=== PATIENT | male | born 1950 | race Caucasian/White ===

== ENCOUNTER 2019-08-25 11:40 | Outpatient (CLI) | payer MEDICARE, SELFPAY ==
[2019-08-26 11:56] LABS: Reference Lab Test Result Negative
== END 2019-08-25 11:41 | disposition home or self-care (01) ==
LOC: ANHLAB 11:45
PROVIDERS: PCP Internal Medicine; Visit Provider Internal Medicine
DX: Z20.828 Contact with and (suspected) exposure to other viral communicable diseases (principal)
CPT/HCPCS: 36415; 86769

== ENCOUNTER 2019-09-01 09:59 | Outpatient (CLI) | payer MEDICARE, SELFPAY ==
--- NOTE | ~2019-09-01 | XR_ITS ---
XR chest 2V DATE: 09/01/2019 10:38 INDICATION: Congestion. Unspecified illness. TECHNIQUE: PA and lateral views COMPARISON: 09/07/2011 PA and lateral chest FINDINGS: There is some ill-defined densities overlying the right infrahilar area and the mid to uppe r lung zones bilaterally, left greater than right; mild infiltrates or pulmonary mass are not exclude d. Consider CT thorax for further evaluation. Normal heart size. Aortic calcification and mild tortuosity. No pleural effusion or pulmonary vascular congestion or pneumothorax. Degenerative spurring of the thoracic spine. IMPRESSION: Bilateral pulmonary infiltrates and/or masses cannot be excluded; consider CT thorax. Reviewed, dictated and finalized at location A. IMPRESSION: Bilateral pulmonary infiltrates and/or masses cannot be excluded; c onsider CT thorax.
--- NOTE | ~2019-09-01 | XR_ITS ---
XR sinus min 3V DATE: 09/01/2019 10:38 INDICATION: Chronic congestion. Chronic sinusitis. TECHNIQUE: oj Marshall, lateral, submental vertical views COMPARISON: None FINDINGS: The paranasal sinuses are normally developed and aerated. The mastoid air cells are normall y developed and aerated. Minimal rightward bowing of the nasal septum. IMPRESSION: Normally developed and aerated paranasal sinuses and mastoid air cells Reviewed, dictated and finalized at location A. IMPRESSION: Normally developed and aerated paranasal sinuses and mastoid air ce lls
[2019-09-01 10:21] LABS: Basophils Percent Auto 0.6 % (0.2-1.2); Eosinophils Percent Auto 0.2 % (0-4.4); Hematocrit 46.4 % (42.0-52.0); Hemoglobin 16.1 g/dL (14.0-18.0); Immature Granulocyte Absolute 0.02 K/mm3 (0.00-0.031); Immature Granulocyte Percent A 0.4 % (0-0.5); Immature Platelet Fraction Pct 4.5 % (0.9-11.2); Lymphocytes Absolute Auto 1.08 K/mm3 (0.9-3.2); Mean Corpuscular HGB Conc 34.7 g/dl (32-36); Mean Corpuscular Hemoglobin 30.9 pg (26-34); Mean Corpuscular Volume 89.1 fl (80-100); Mean Platelet Volume 10.7 fl (7.4-10.4); Monocytes Absolute Auto 0.7 K/mm3 (0.1-0.6); Monocytes Percent Auto 14.4 % (2.6-8.5); Neutrophils Absolute Auto 3.3 K/mm3 (1.3-6.7); Neutrophils Percent Auto 63.4 % (45.5-73.1); Platelet Count Result 111 k/mm3 (150-375); Red Blood Count 5.21 M/mm3 (4.6-6.20); Red Cell Distribution Width 12.2 % (11.5-14.5); White Blood Count 5.1 K/mm3 (4.5-10.0)
[2019-09-01 10:44] LABS: Influenza Control Positive
== END 2019-09-01 10:00 | disposition home or self-care (01) ==
PROVIDERS: Visit Provider Internal Medicine
DX: J32.9 Chronic sinusitis, unspecified (principal); R69 Illness, unspecified; R91.8 Other nonspecific abnormal finding of lung field
CPT/HCPCS: 36415; 70220; 71046; 85025; 85055; 87804

== ENCOUNTER 2019-09-06 10:27 | Outpatient (CLI) | payer MEDICARE, SELFPAY ==
--- NOTE | ~2019-09-06 | XR_ITS ---
XR chest 2V w apical lordotic 09/06/2019 10:51 Indication: Pneumonia follow-up Procedure: 3 view chest including apical lordotic views Comparison: 09/01/2019 Findings: Interval resolution of bilateral infiltrates, likely resolving pneumonia or atelectasis. No focal pneumonia, pleural effusion or pneumothorax. Heart size is normal. No acute osseous abnormalit y. Impression: 1: No acute cardiopulmonary disease. Reviewed, dictated and finalized at location A. Impression: 1: No acute cardiopulmonary disease.
== END 2019-09-06 10:28 | disposition home or self-care (01) ==
LOC: ANHIMG 10:32
PROVIDERS: Visit Provider Internal Medicine
DX: J18.9 Pneumonia, unspecified organism (principal)
CPT/HCPCS: 71047

== ENCOUNTER 2019-11-07 08:31 | Outpatient (CLI) | payer MEDICARE, SELFPAY ==
--- NOTE | ~2019-11-07 | XR_ITS ---
EXAMINATION: XR chest 2V DATE: 11/07/2019 08:47 INDICATION: Upper respiratory tract infection TECHNIQUE: PA and lateral views of the chest are obtained. COMPARISON: 09/06/2019 FINDINGS: The lungs are free of acute opacities. There is no pleural effusion or pneumothorax. The ca rdiomediastinal silhouette is normal. There is moderate thoracic spondylosis. IMPRESSION: 1. No acute cardiopulmonary abnormality. Reviewed, dictated and finalized at location A.
== END 2019-11-07 08:32 | disposition home or self-care (01) ==
LOC: ANHIMG 08:36
PROVIDERS: Visit Provider Internal Medicine
DX: J06.9 Acute upper respiratory infection, unspecified (principal)
CPT/HCPCS: 71046

== ENCOUNTER 2020-02-01 07:57 | Outpatient (CLI) | payer MEDICARE, SELFPAY ==
--- NOTE | ~2020-02-01 | NM_ITS ---
EXAMINATION: NM stress w perf spect multi DATE: 02/01/2020 11:18 INDICATION: Abnormal electrocardiogram. TECHNIQUE: Rest images were obtained following intravenous administration of 9.1 mCi Tc99m tetrofosmi n ([employer] The patient performed an exercise activity. At peak exercise, 27.5 mCi Tc99m tetrofosmin ([employer]) was administered intravenously, and stress images were obtained. Data was reconstructed in to short axis and horizontal and vertical long axis SPECT images. Gated SPECT images were also obtain ed. COMPARISON: None. FINDINGS: There is no definite reversible or fixed perfusion abnormality to suggest ischemia or infar ction. There is no segmental wall motion abnormality. Left ventricular ejection fraction measures > 70%. IMPRESSION: 1. No definite ischemia or infarct. 2. Normal left ventricular ejection fraction measuring >70%. Reviewed, dictated and finalized at location A.
--- NOTE | 2020-02-01 08:05 | ECHO_ITS ---
Patient Info Name: Parmjit Burnett Age: 69 years : 1950 Gender: Male Ht: 66 in Wt: 180 lbs BSA: 1.97 m2 HR: 75 bpm BP: 162 / 98 mmHg Heart Rhythm: Sinus Rhythm Technical Quality: Good Exam Date: 02/01/2020 8:25 AM Exam Location: [facility] Pulmonary Patient Status: Outpatient Admit Date: 02/01/2020 Staff Ordering Physician: Jomar Lance MD Fashion Consultant Sales: Brian Granados RDCS Attending Provider: Jomar Lance MD Referring Physician: Casi CASTRO; Exam Type: CA echo doppler color flow Study Info Indications R94.31 - Abnormal electrocardiogram ECG EKG Complete two-dimensional, color flow and Doppler transthoracic echocardiogram is performed. History/Risk Factors Abnormal EKG, HTN. Summary 1. Complete two-dimensional, color flow and Doppler transthoracic echocardiogram is performed. 2. Left ventricular chamber dimension is normal. 3. Left ventricular systolic function is normal, estimated at 60-65%. 4. The left ventricular diastolic function is grade I diastolic dysfunction. 5. E/e' 10 is mildly elevated. 6. There is mild aortic valve sclerosis. 7. There is mild aortic valve regurgitation. 8. There is mild tricuspid valve regurgitation. 9. No pulmonary hypertension, estimated pulmonary arterial systolic pressure is 33 mmHg. Left Ventricle E/e' 10 is mildly elevated. Left ventricular chamber dimension is normal. Left ventricular systolic function is normal, estimated at 60-65%. The left ventricular diastolic function is grade I diastolic dysfunction. Right Ventricle Right ventricular chamber dimension is normal. Right ventricular systolic function is normal. Left Atria Left atrial chamber dimension is normal. Right Atria Right atrial chamber dimension is normal. Aortic Valve The aortic valve is trileaflet. There is mild aortic valve sclerosis. There is no aortic valve stenosis. There is mild aortic valve regurgitation. Pulmonic Valve There is no pulmonic regurgitation. Mitral Valve There is no mitral valve stenosis. There is no mitral valve regurgitation. Tricuspid Valve There is mild tricuspid valve regurgitation. No pulmonary hypertension, estimated pulmonary arterial systolic pressure is 33 mmHg. Pericardium/Pleural There is no pericardial effusion. Inferior Vena Cava Normal inferior vena cava with >50% collapse upon inspiration consistent with normal right atrial pressure, 5 mmHg. Aorta The aortic root size at the sinus of Valsalva is normal. Left Ventricular Outflow Tract Name Value Normal LVOT 2D LVOT Diameter 2.0 cm LVOT Doppler LVOT Peak Gradient 3 mmHg LVOT Mean Gradient 2 mmHg LVOT VTI 18 cm LVOT VTI/AV VTI Ratio 0.6 LVOT Stroke Volume 57 ml LVOT CO 3.6 l/min LVOT CI 1.8 l/min/m2 Mitral Valve Name Value
--- NOTE | 2020-02-01 08:05 | EST_ITS ---
Patient Info Name: Parmjit Burnett Age: 69 years : 1950 Gender: Male Ht: 66 in Wt: 180 lbs BSA: 1.97 m2 Exam Date: 02/01/2020 10:13 AM Exam Location: [facility] Stress Patient Status: Outpatient Admit Date: 02/01/2020 Staff Ordering Physician: Jomar Lance MD Attending Provider: Jomar Lance MD Exercise Technologist: Roby Castañeda RDCS, RT Exercise Physician: Dax Recio DO Exam Type: CA stress test treadmill w NM Study Info Indications R94.31 - Abnormal electrocardiogram ECG EKG A nuclear stress test was performed. A treadmill exercise stress test was performed. Summary 1. 1. Negative Lyle exercise stress test for ischemic ST changes by ECG criteria. 2. 2. Good functional capacity, achieving 10 METs of workload. 3. 3. Appropriate HR response to exercise. 4. 4. Appropriate HR recovery at 1 minute post exercise. 5. 5. Nuclear scan to follow and will be reported separately. Please correlate with it. 6. 6. Patient informed of the above results. Protocol: Lyle Stress ECG Details Stage: REST Duration (min): 0 min : 52 sec Speed (mph): 0.0 Grade (%): 0 HR (bpm): 56 SBP (mmHg): 143 DBP (mmHg): 85 METS: --- Stage: REST Duration (min): 13 min : 21 sec Speed (mph): 0.0 Grade (%): 0 HR (bpm): 68 SBP (mmHg): 143 DBP (mmHg): 85 METS: --- Stage: STAGE 1 Duration (min): 1 min : 0 sec Speed (mph): 1.7 Grade (%): 10 HR (bpm): 87 SBP (mmHg): 143 DBP (mmHg): 85 METS: --- Stage: STAGE 1 Duration (min): 2 min : 0 sec Speed (mph): 1.7 Grade (%): 10 HR (bpm): 88 SBP (mmHg): 143 DBP (mmHg): 85 METS: --- Stage: STAGE 1 Duration (min): 3 min : 0 sec Speed (mph): 1.7 Grade (%): 10 HR (bpm): 93 SBP (mmHg): 169 DBP (mmHg): 88 METS: --- Stage: STAGE 2 Duration (min): 1 min : 0 sec Speed (mph): 2.5 Grade (%): 12 HR (bpm): 101 SBP (mmHg): 169 DBP (mmHg): 88 METS: --- Stage: STAGE 2 Duration (min): 2 min : 0 sec Speed (mph): 2.5 Grade (%): 12 HR (bpm): 105 SBP (mmHg): 169 DBP (mmHg): 89 METS: --- Stage: STAGE 2 Duration (min): 3 min : 0 sec Speed (mph): 2.5 Grade (%): 12 HR (bpm): 109 SBP (mmHg): 169 DBP (mmHg): 89 METS: --- Stage: STAGE 3 Duration (min): 1 min : 0 sec Speed (mph): 3.4 Grade (%): 14 HR (bpm): 121 SBP (mmHg): 184 DBP (mmHg): 90 METS: --- Stage: STAGE 3 Duration (min): 2 min : 0 sec Speed (mph): 3.4 Grade (%): 14 HR (bpm): 129 SBP (mmHg): 184 DBP (mmHg): 90 METS: --- Stage: STAGE 3 Duration (min): 2 min : 35 sec Speed (mph): 3.4 Grade (%): 14 HR (bpm): 134 SBP (mmHg): 184 DBP (mmHg): 90 METS: --- Stage: RECOVERY Duration (min): 0 min : 24 sec Speed (mph): 0.0 Grade (%): 0 HR (bpm): 125 SBP (mmHg): 161 DBP (mmHg): 109 METS: --
== END 2020-02-01 07:58 | disposition home or self-care (01) ==
PROVIDERS: Visit Provider Internal Medicine
DX: R94.31 Abnormal electrocardiogram [ECG] [EKG] (principal); I35.8 Other nonrheumatic aortic valve disorders; I35.1 Nonrheumatic aortic (valve) insufficiency
CPT/HCPCS: 78452; 93017; 93306; A9502

== ENCOUNTER 2021-10-12 07:47 | Outpatient (CLI) | payer MEDICARE, SELFPAY ==
--- NOTE | ~2021-10-12 | MR_ITS ---
EXAMINATION: MR knee LT wo con DATE: 10/12/2021 08:36 INDICATION: Worsening chronic left knee pain. TECHNIQUE: Magnetic resonance imaging (MRI) of the left knee was performed without intravenous contra st. Sequences included axial PD-weighted FS FSE, coronal PD-weighted FSE and PD-weighted FS FSE, sagi ttal PD-weighted FSE, and sagittal T2-weighted FS FSE. COMPARISON: None. FINDINGS: Medial compartment: Full-thickness diffuse cartilage loss. Vertically oriented tear of the posterior horn, medial meniscu s, contiguous with horizontally oriented tearing of the body. Extensive degenerative meniscal signal change and medial extrusion. Lateral compartment: Moderate diffuse cartilage loss. Apical tear of the posterior horn, lateral meniscus. Patellofemoral compartment: Mild cartilage thinning along the lateral facet with partial thickness signal changes in the patellof emoral cartilage. Ligaments and tendons: The ACL is poorly visualized and is likely chronically torn. MCL, LCL, and PCL are intact. Flexor and extensor tendons are intact. Fluid: Moderate volume joint fluid. Osseous/other: Tricompartmental osteophytosis. Subchondral sclerosis in the medial compartment. IMPRESSION: 1. Tricompartmental osteoarthritis, severe in the medial compartment. 2. Extensive degenerative signal change and degenerative tears present in the medial meniscus. 3. Apical tear, lateral meniscus. 4. Chronic ACL tear. 5. Moderate left knee joint effusion. Reviewed, dictated and finalized at location K. IMPRESSION: 1. Tricompartmental osteoarthritis, severe in the medial compartment. 2. Extensive degenerative signal change and degenerative tears present in the m edial meniscus. 3. Apical tear, lateral meniscus. 4. Chronic ACL tear. 5. Moderate left knee joint effusion.
== END 2021-10-12 07:48 | disposition home or self-care (01) ==
PROVIDERS: Visit Provider Internal Medicine
DX: M23.8X2 Other internal derangements of left knee (principal); M17.12 Unilateral primary osteoarthritis, left knee; M25.462 Effusion, left knee; S83.282A Other tear of lateral meniscus, current injury, left knee, initial encounter; X58.XXXA Exposure to other specified factors, initial encounter
CPT/HCPCS: 73721

== ENCOUNTER 2022-01-01 10:06 | Outpatient (CLI) | payer MEDICARE, SELFPAY ==
--- NOTE | ~2022-01-01 | XR_ITS ---
EXAMINATION: XR ankle RT min 3V DATE: 01/01/2022 10:35 INDICATION: Right ankle pain TECHNIQUE: Anteroposterior, oblique, mortise, and lateral views of the right ankle were obtained. COMPARISON: None. FINDINGS: Bone alignment is normal. No fracture. Heterotopic ossicles near the tip the medial malleolus likely sequela of chronic deltoid ligament sprain. Moderate-sized plantar calcaneal spur. Small dystrophic o ssicle at the distal Achilles tendon. Mild tibiotalar osteoarthritis. No ankle joint effusion. No ero sions. Vascular calcifications along the posterior tibial and anterior tibial arteries. IMPRESSION: 1. Mild osteoarthritis at the right ankle 2. A few small heterotopic ossicle suggesting chronic deltoid ligament sprain. 3. Enthesopathic change at the calcaneal insertions of the distal Achilles tendon and proximal planta r aponeurosis. Reviewed, dictated and finalized at location A. IMPRESSION: 1. Mild osteoarthritis at the right ankle 2. A few small heterotopic ossicle suggesting chronic deltoid ligament sprain. 3. Enthesopathic change at the calcaneal insertions of the distal Achilles tend on and proximal plantar aponeurosis.
[2022-01-01 11:55] LABS: CRP 0.6 mg/dL (<1.0); Uric Acid 4.8 mg/dL (3.5-8.5)
[2022-01-01 12:18] LABS: Erythrocyte Sedimentation Rate 10 mm/hr (0-20)
== END 2022-01-01 10:07 | disposition home or self-care (01) ==
PROVIDERS: PCP Internal Medicine; Visit Provider Internal Medicine
DX: M25.571 Pain in right ankle and joints of right foot (principal); M19.071 Primary osteoarthritis, right ankle and foot
CPT/HCPCS: 36415; 73610; 84550; 85652; 86140

== ENCOUNTER 2022-06-09 09:37 | Outpatient (CLI) | payer MEDICARE, SELFPAY ==
--- NOTE | ~2022-06-09 | XR_ITS ---
Lumbosacral Spine: AP and lateral views Clinical History: Pain COMPARISON: 08/27/2013 Findings: The normal lordotic curve is maintained. The vertebral bodies and posterior elements are i ntact. The intervertebral disc spaces are preserved. Facet joint degenerative change present at L4-L 5 and L5-S1. The sacroiliac joints are normally outlined. Impression: Stable facet joint degenerative changes at the lower lumbar spine. Reviewed, dictated and finalized at location . CE SUPERINTENDENT Impression: Stable facet joint degenerative changes at the lower lumbar spine.
== END 2022-06-09 09:38 | disposition home or self-care (01) ==
LOC: ANHIMG 09:42
PROVIDERS: PCP Internal Medicine; Visit Provider Internal Medicine
DX: M47.816 Spondylosis without myelopathy or radiculopathy, lumbar region (principal)
CPT/HCPCS: 72100

== ENCOUNTER 2022-10-01 14:21 | Outpatient (CLI) | payer MEDICARE, SELFPAY ==
[2022-10-01 14:36] LABS: Basophils Percent Auto 0.8 % (0.2-1.2); Eosinophils Absolute Auto 0.1 K/mm3 (0-0.3); Eosinophils Percent Auto 1.2 % (0-4.4); Hematocrit 50.8 % (42.0-52.0); Hemoglobin 17.4 g/dL (14.0-18.0); Immature Granulocyte Absolute 0.01 K/mm3 (0.00-0.031); Immature Granulocyte Percent A 0.2 % (0-0.5); Immature Platelet Fraction Pct 6.8 % (0.9-11.2); Lymphocytes Absolute Auto 0.91 K/mm3 (0.9-3.2); Lymphocytes Percent Auto 18.6 % (18.3-44.2); Mean Corpuscular HGB Conc 34.3 g/dl (32-36); Mean Corpuscular Hemoglobin 31.2 pg (26-34); Mean Platelet Volume 11.2 fl (7.4-10.4); Monocytes Absolute Auto 0.4 K/mm3 (0.1-0.6); Neutrophils Absolute Auto 3.4 K/mm3 (1.3-6.7); Neutrophils Percent Auto 70.2 % (45.5-73.1); Platelet Count Result 112 k/mm3 (150-375); Red Blood Count 5.58 M/mm3 (4.6-6.20); Red Cell Distribution Width 12.6 % (11.5-14.5); White Blood Count 4.9 K/mm3 (4.5-10.0)
[2022-10-01 16:58] LABS: Alanine Aminotransferase 22 U/L (6-50); Albumin Level 4.9 g/dL (3.5-5.1); Alkaline Phosphatase 71 U/L (38-126); Anion Gap 9 mmol/L (8-16); Aspartate Amino Transferase 32 U/L (17-59); Bilirubin,Total 0.6 mg/dL (0.2-1.3); Blood Urea Nitrogen 18 mg/dL (9-20); Calcium 9.4 mg/dL (8.4-10.2); Carbon Dioxide 26 mmol/L (22-30); Chloride 104 mmol/L (98-107); Estimated Glomerular Filt Rate 50; Glucose 119 mg/dL (65-110); Sodium 139 mmol/L (137-145)
[2022-10-07 07:19] LABS: Erythropoietin (EPO) 23.2
[2022-10-09 14:41] LABS: CALR Exon 9 Mutation Not Detected (Not Detected); CSF3R Exon 14/17 Mutation Not Detected (Not Detected); JAK2 Exon 12 Mutation Not Detected (Not Detected); JAK2 V617F Mutation Not Detected (Not Detected); MPL Exon 10 Mutation Not Detected (Not Detected); Specimen Source Blood
== END 2022-10-01 14:22 | disposition home or self-care (01) ==
LOC: ANHLAB 14:23
PROVIDERS: PCP Internal Medicine; Visit Provider Internal Medicine Hematology & Oncology
DX: D75.1 Secondary polycythemia (principal)
CPT/HCPCS: 36415; 80053; 81219; 81270; 81279; 81339; 81479; 82668; 85025; 85055

== ENCOUNTER 2022-11-26 06:35 | Outpatient (CLI) | payer MEDICARE, SELFPAY ==
--- NOTE | ~2022-11-26 | CT_ITS ---
EXAMINATION: CT abdomen pelvis w con DATE: 11/26/2022 07:46 INDICATION: Left lower quadrant abdominal pain TECHNIQUE: Computed tomography (CT) of the abdomen and pelvis was performed with 100 CC Omnipaque 350 intravenous contrast. Automated exposure control and iterative reconstruction technique were employe d. Exam dose: 555.99 mGy-cm total exam DLP. COMPARISON: None. FINDINGS: There is minimal atelectasis at the lung bases. Heart size is within normal limits. No jerson cardial or pleural effusion. Very small sliding hiatal hernia. There calcified hepatic and splenic granulomas consistent with old granulomatous disease. No hepatic, splenic, pancreatic, adrenal or renal space-occupying mass lesion is noted. The gallbladder is unremarkable. No bile duct or pancreatic duct dilatation. No urinary tract calculus or hydroureteronephrosis. There is mild prostate enlargement. The urinary bladder is unremarkable. Bilateral fat-containing inguinal hernias and small fat-containing umbilical hernia. There is atherosclerotic calcification but normal caliber of the abdominal aorta. No intraperitoneal or retroperitoneal or pelvic mass lesion or adenopathy or ascites. No evidence of appendicitis. No bowel obstruction, bowel wall thickening, pneumatosis or intraperiton eal free air. Slight diverticulosis of the colon; no CT evidence of diverticulitis. Degenerative changes of the thoracic and lumbar spine; no suspicious osteolytic or osteoblastic lesio ns. IMPRESSION: Very small sliding hernia Slight diverticulosis of the colon Mild prostate enlargement Reviewed, dictated and finalized at Location A. Reviewed, dictated and finalized at location B.
[2022-11-26 07:40] LABS: Estimated Glomerular Filt Rate 50
== END 2022-11-26 06:36 | disposition home or self-care (01) ==
PROVIDERS: PCP Internal Medicine; Visit Provider Internal Medicine
DX: R10.32 Left lower quadrant pain (principal); N40.0 Benign prostatic hyperplasia without lower urinary tract symptoms; K42.9 Umbilical hernia without obstruction or gangrene; K40.90 Unilateral inguinal hernia, without obstruction or gangrene, not specified as recurrent; K57.92 Diverticulitis of intestine, part unspecified, without perforation or abscess without bleeding
CPT/HCPCS: 74177; Q9967

== ENCOUNTER 2024-11-10 14:34 | Outpatient (CLI) | payer MEDICARE, SELFPAY ==
--- OUTSIDE RECORDS SUMMARY | 2024-11-10 14:38 | XMS_ITS | Continuity of Care Document ---
Author Organization [facility] Address [address] [place] [address] Phone Care Team Providers Care Screw Eye Assembler Name Role Phone Esdras Mcbride MD Unavailable Unavailable Medications Medication Instructions Dosage Effective Dates (start - stop) Status Comments EXFORGE (unknown strength) Not Available - Active aspirin 81 mg tablet,delayed release - Active Procedures Procedure Date OFFICE/OUTPATIENT VISIT EST OFFICE/OUTPATIENT VISIT NEW Advance Directives Directive Yes / No Effective Date File Name No Information Encounters Encounter Description Practice Location Reason(s) For Visit Diagnoses Date Provider Providers Copied on Encounter OFFICE/OUTPA TIENT VISIT EST [facility], [address] [address], [place], [address], [place] tel:[phone] [facility] Osteoarthritis of right knee [address]. [address] [facility], [place], [place], [id number] . tel: [phone] OFFICE/OUTPA TIENT VISIT NEW [facility], [address] [address], [place], [address], [place] tel:[phone] [facility] Right knee painOsteoarthrit is of right kneeTear of medial meniscus of right knee [address]. [address] [facility], [place], [place], [id number] . tel:[phone] Referring Provider: Jomar Hicks, [address], [place], [address]. tel:[phone] Family History Family Member Type Diagnosis Age At Onset Mother Problem (finding) malignant neop lasm of breast in first degree relative Father Problem (finding) prostate cancer Payers Payer name Insurance type Covered constitution party ID Randolph bhat(s) No Information Social History Type Description Quantity Date Captured Comments Alcohol Use Details Unknown Caffeine Use Details Unknown Tobacco Use Status No Information Smoking Status No Information Sex Male Chief Complaint And Reason For Visit No Information Reason For Referral Reason For Referral No Information Plan Of Treatment Date Type Action Status Referral Ordered: RADEX KNE 3 VIEWS RT ordered History Of Present Illness Encounter Date Complaint History Of Prese nt Illness No Information Functional Status Date Functional Assessmen t No Information Instructions Date Instruction Additional Infor mation Home exercise program. Related t o Osteoarthritis of right knee Discussed surgical options Relat ed to Osteoarthritis of right knee Rest, ice and elevate. Related t o Right knee pain Weight bearing status as directe d. Related to Right knee pain Home exercise program. Related t o Right knee pain Rest, ice and elevate. Related t o Left wrist sprain Cast/splint care given. Related to Left wrist sprain Take medication as directed. Rel ated to Left wrist sprain Use as directed Related to Left wrist sprain Discussed treatment options Rela marta to Right knee pain Assessments Type Assessment Date assessment Osteoarthritis of right knee May Patient Care Teams Name Effective Dates (start - stop) Status Members No Information
--- OUTSIDE RECORDS SUMMARY | 2024-11-10 14:38 | XMS_ITS | Clinical Summary ---
Author Organization [facility] Address [address] [place] [address] Care Team Providers Care Carpenter Mate Name Role Phone Jomar Lance MD Primary Care Provider + Allergies No known active allergies Medications SITagliptin phosphate (Januvia) 100 mg Tablet 04/02/2021 Active empagliflozin (Jardiance) 10 mg tablet Take 10 mg by mouth daily. 04/07/2022 Active levocetirizine (XYZAL) 5 mg tablet TAKE 1 TABLET BY MOUTH NEEDED ONCE DAILY FOR ALLERGY SYMPTOMS 04/16/2022 Active ezetimibe-simva statin (VYTORIN) 10-10 mg tablet Take 1 Tablet by mouth daily at bedtime. Active losartan (COZAAR) 100 mg tablet Take 100 mg by mouth daily. Active Saccharomyces boulardii (FLORASTOR) 250 mg Capsule Take by mouth. Active OMEGA-3 FATTY ACIDS-FISH OIL ORAL Take by mouth. Active aspirin (ISIDRA CHEWABLE) 81 mg Tablet, Chewable Take 81 mg by mouth daily. Active Calcium-Choleca lciferol, D3, (OSCAL) 250 mg-3.125 mcg (125 unit) per tablet Take by mouth daily. Active amLODIPine-ator vastatin 5-10 mg tablet Take 1 Tablet by mouth daily. Active Active Problems No known active problems Family History Relation Name Status Comments Daughter Alive Father Mother Sister Alive Son 1 Alive Son 2 Alive Social History Tobacco Use Types Packs/Day Years Used Date Smoking Tobacco: Never Smokeless Tobacco: Never Tobacco Cessation:Counseling Given: Not Answered Alcohol Use Standard Drinks/Week Comments Yes 0 (1 standard drink = 0.6 oz pur e alcohol) ocassional Sex and Gender Information Value Date Recorded Sex Assigned at Not on file Legal Sex Male 3:21 PM CDT Gender Identity Not on file Sexual Orientation Not on file Last Filed Vital Signs Vital Sign Reading Time Taken Comments Blood Pressure 149/80 10/01/2022 1:24 PM CDT Pulse 97 10/01/2022 1:23 PM CDT Temperature 36.7 C (98 F) 10/01/2022 1:23 PM CDT Respiratory Rate 10 10/01/2022 1:23 PM CDT Oxygen Saturation 97% 10/01/2022 1:23 PM CDT Inhaled Oxygen Concentration - - Weight 82.1 kg (181 lb) 10/01/2022 1:23 PM CDT Height - - Body Mass Index - - Plan of Treatment Health Maintenance Due Date Last Done Comments DTAP/TDAP/TD VACCINES (1 - Tdap) 11/19/1967 COLORECTAL SCREENING 1993 Colorectal Cancer Screening 1993 FIT-DNA Q 3 years 1993 FIT/FOBT Q 1 year 1993 Flex Sig/CT Colonography Q 5 years 1993 PNEUMOCOCCAL VACCINE 50+ YEARS (1 of 1 - PCV) 11/18/18 99 ZOSTER VACCINE (1 of 2) 1998 RSV VACCINE (60+ or ) (1 - 1-dose 75+ series) 11/19/2023 INFLUENZA VACCINE (#1) 2024 Insurance [employer] O MCR Care Teams Carpenter Mate Relationship Specialty Start Date End Date Jomar Lance MD [address] [place] [id number] PCP - General Internal Medicine 10/01/22
--- OUTSIDE RECORDS SUMMARY | 2024-11-10 14:38 | XMS_ITS | Data Portability ---
Author Organization [place] [facility] [employer], Main Office Address [address] [place] [address] Care Team Providers Care Material Processor Name Role Phone RENE NORRIS Primary Care Provider RENE NORRIS Referring Provider [phone] Assessment Encounter Date Assessment Date Assessment LastModified by Organization Details LastModified Time 07/09/2022 07/09/2022 HPI: 71-year-old male came in today for evaluation of his left hip and left knee symptoms. He was seen by Dr. Ansari in October of 2021. He had x-rays done. He was told had arthritis in both hip in the knee. He does not have an injection at that time in the knee. His left knee has been painful for him for years. At certain times of the be increased in the pain other times is very tolerable. He states sometimes is able run up and down stairs without any symptoms other times he feels like he needs to crawl up and down stairs because of pain in the knee. 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 He goes to the gym 3 times a week. One month ago he was walking on the treadmill with a steep incline. He started to experience severe pain in the left groin radiating to the anterior thigh. He was given peroxicamfrom his primary care doctor which she did not feel helped. He was given a Medrol Dosepak 1 month ago and the symptoms in the hip have completely gone away. In the past patient has used ibuprofen, 600 mg, and this seems to help a lot with any of his symptoms. He does not take this on a regular basis. At this point patient's symptoms are overall very mild in both the hip and the. I reviewed patient's x-rays of the left knee which show moderate to moderately severe medial compartment osteoarthritis with mild varus alignment. X-rays of the hip show moderate type 1 osteoarthritis on the AP pelvis view. Physical exam: 71-year-old male very alert pleasant. He is healthy , youthful. he walks well without limp or assistance. He is 5 ft 4 189 lb. He has mild effusion in the left knee. Mild varus alignment. Range of motion is from 0-135 degrees. He has some mild tenderness over the medial joint line to palpation. No lateral joint line tenderness. No pain patellofemoral grind. He has no swelling in either lower extremity. 2+ dorsalis pedis pulse. His left hip flexes to 110 externally rotates to 20 internally rotates to 0. With internal and external rotation he has some mild groin discomfort. Stinchfield maneuver causes him minimal groin discomfort. 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 This is longstanding. This would correlate to the patient having symptoms for years in that knee but again overall his symptoms are very tolerable. He had an episode a month ago where he aggravated the left hip walking on steep incline on the treadmill. At this point his hip is asymptomatic. I had a long discussion with the patient concerning his osteoarthritis both the hip and the knee. We talked about options, cortisone injection in the knee, anti-inflammatori es. And possibly joint replacement in the hip and the knee if his symptoms worsen over time. Talked about modifying activities. We also talked about taking the ibuprofen on a more regular basis rather than when he is hurting as this may help improve his symptoms as well. At this point he is content to try these measures to see if his symptoms continue to be very tolerable. He is going on an [facility] [place] cruise in mid September and we will make an appointment to come in about a week before the trip for a possible cortisone injection left knee depending on his symptoms. If he is doing very well and continues to be asymptomatic he will call and cancel. 30 minutes was spent in treatment of the patient with more than half of this in [id number] conversation. Not available 07/09/2022 12:17:36 09/03/2022 09/03/2022 HPI: Patient returns. he was seen in early July of this year pain left greater than right knee as well as his hip. He is getting ready to go to [place] for vacation. We had talked in July about getting cortisone injection in the knee prior to his trip if he felt that he needed. At this point he is still remaining asymptomatic. He does not feel that the shot is going to be beneficial since he is not really having any symptoms. He does use [id number] ibuprofen this seems to help with his symptoms. He also has a Medrol Dosepak that he is taking with him on his trip given from his primary care doctor. He had taken this in the past when he had a flare up his left hip arthritis and worked dramatically for him. Again at this point patient is asymptomatic. I advise migrated I do not think the injection today is going to necessarily beneficial and he did not either. He declined the injection. Talked about injections in the future. I recommended that he take the ibuprofen on a regular basis up until his trip and then also while is on his trip to hopefully keep from having any symptoms. He will call he has a change in his symptoms otherwise see him back as needed. Not available 09/03/2022 09:28:11 Plan of Treatment Reminders Order Date Submit Date Provider Last Modified By Organization Details Last Modified Time Details Appointments None record ed. Lab None record ed. Referral None record ed. Procedures None record ed. Surgeries None record ed. Imaging None record ed. Medication Orders None record ed. Patient TargetsNo targets recorded. Patient InstructionsNo instructions recorded. Reason for Referral None Reported. Results Created Date Observation Date Name Description Value Unit Range Abnormal Flag Note LastModifiedBy Organization Detail LastModifiedTime 06/13/19 23 06/09/2022 XR, lumba r spine , 2 view No observ ation record ed. [id number] Not Available 07/03/2022 01:48:26 Result Notes None recorded. Problems Name Problem SNOMED Code Status Onset Date Resolution Date Notes Provider Name and Address Organization Details Recorded Time Pain of left hip joint 958817546412418 Active 2022 GUANAKO Maher [place] [facility] [employer] [facility] 3 09:31:20 Pain of left knee joint 847881934885041 Active 2022 GUANAKO Maher [place] [facility] [employer] [facility] 3 08:39:44 Problem Notes None recorded. Medical Equipment None Reported. Allergies No known drug allergies Medications Name Sig Start Date Stop Date Status Note LastModified by Organization Details LastModified Time amlodipine 5 mg tablet TAKE 1 TABLET BY MOUTH ONCE DAILY active Not Available Not Available No t Available OneTouch Ultra Test strips USE 1 STRIP TO CHECK GLUCOSE ONCE DAILY 07/09 completed Not Available Not Available Not Available azelastine 137 mcg (0.1 %) nasal spray USE 1 SPRAY(S) IN EACH NOSTRIL EVERY 12 HOURS active Not Available Not Available No t Available methylpredn isolone 4 mg tablets in a dose pack TAKE BY MOUTH DIRECTED ON INSIDE OF PACKAGE active Not Available Not Available No t Available losartan 100 mg tablet TAKE 1 TABLET BY MOUTH ONCE DAILY WITH AMLODIPIN E active Not Available Not Available No t Available fluticasone propionate 50 mcg/actuati on nasal spray,suspe nsion USE 2 SPRAY(S) IN EACH NOSTRIL ONCE DAILY active Not Available Not Available No t Available naproxen 500 mg tablet TAKE 1 TABLET BY MOUTH THREE TIMES DAILY FOR PAIN WITH FOOD active Not Available Not Available No t Available ezetimibe 10 mg tablet TAKE 1 TABLET BY MOUTH ONCE DAILY active Not Available Not Available No t Available Januvia 100 mg tablet TAKE 1 TABLET BY MOUTH ONCE DAILY active Not Available Not Available No t Available levocetiriz ine 5 mg tablet TAKE 1 TABLET BY MOUTH ONCE DAILY NEEDED FOR ALLERGIES active Not Available Not Available No t Available Jardiance 10 mg tablet TAKE 1 TABLET BY MOUTH ONCE DAILY active Not Available Not Available No t Available OneTouch Delica Plus Lancet 33 gauge USE 1 TO CHECK GLUCOSE ONCE DAILY 07/09 completed Not Available Not Available Not Available Lagevrio 200 mg capsule (EUA) TAKE 4 CAPSULES EVERY 12 HOURS FOR 5 DAYS 07/09 completed Not Available Not Available Not Available Vitals Date Recorded Body height Body mass index (BMI) Body weight Provider Name and Address Organization Details Last Updated DateTime 07/09/2022 162.56 cm 32.4 kg/m2 52272.96 g GUANAKO Maher [facility] [employer] [facility] 07/09/2022 09:45:48 Date Recorded Body height Provider Name an d Address Organization Details Last Updated DateTime 09/03/2022 162.56 cm Charleen Dia [employer] [facility] [employer] [facility] 09/03/2022 08:38:50 Social History None recorded. Functional Status Question Answer Note LastModified by Organizat ion Details LastModified Time What is your level of alcohol consumption? Occasional [email or web address] Information not available 07/09/2022 Mental Status None recorded. Family History Relationship Description Onset Age of this Age Resolved Age Notes LastModified by Organization Details LastModified Time Maternal Aunt Family history of malignant neoplasm [email or web address] Not available 2022 09:29:57 Mother Family history of malignant neoplasm [email or web address] Not available 2022 09:29:57 Paternal Grandmother Hypertensive disorder [email or web address] Not available 2022 09:30:11 Medical History Condition Response ARTHRITIS Y HYPERTENSION Y Past Encounters Encounter ID Performer Location Encounter Start Date Encounter Closed Date Diagnosis/Indication Diagnosis SNOMED-CT Code Diagnosis ICD10 Code Diagnosis Note [id number] Arsen Hart MD [facility] [address] [place] [address] 07/09/2022 09:23:15 07/09/2022 12:24:12 Pain of left hip joint 4494701817 67576 M25.552 [id number] Arsen Hart MD [facility] [address] [place] [address] 09/03/2022 08:36:53 09/03/2022 10:05:37 Pain of left knee joint 4621936349 36667 M25.562 Health Concerns Section Related Observation LastModified by Organization Detai ls LastModified Time None Recorded Concern Status LastModified by Organization Details LastModified Time None Recorded Advance Directives Directive None Recorded Payers Insurance Date Sequence Insurance Name Policy Number Policy Victoria Covered Member ID Victoria Member ID Guarantor Name 09/08/2022 1 [employer] (MEDICARE REPLACEMENT/ ADVANTAGE - PPO) [id number] Parmjit Burnett [id number] Parmjit Burnett 07/14/2022 1 [id number] Parmjit Burnett [id number] Parmjit Burnett
--- OUTSIDE RECORDS SUMMARY | 2024-11-10 14:38 | XMS_ITS | Clinical Summary ---
Author Organization [facility] Address [address] [place] [address] Care Team Providers Care 3D Animator Name Role Phone Jomar Lance MD Primary Care Provider [phone] Source Comments [facility],non-owned Affiliates and Associated Physician Practices is amultiple site organization consisting of ambulatory clinics and hospital sitesin [place], [place], [place] and [place]. This disclosure is being madepursuant to the Care Everywhere program and may not contain all information available regarding this patient. Last updated 18.[facility] [employer] Allergies No known active allergies Medications * Be aware that medications may not be up to date on this document. Alwaysverify current medications with the patient. losartan (COZAAR) 100 MG tablet Take 1 (one) tablet by mouth once daily 07/23/2018 Active amLODIPine (NORVASC) 5 MG tablet Take 1 (one) tablet by mouth once daily 07/23/2018 Active ezetimibe (Zetia) 10 MG tablet Take 1 (one) tablet by mouth once daily Active Calcium Citrate-Vitamin D (CALCIUM + D PO) Take 1 tablet by mouth once daily Active ASPIRIN 81 PO Take 1 tablet by mouth once daily Active JANUVIA 100 MG tablet 04/02/2021 Active Jardiance 10 MG tablet Take 1 (one) tablet by mouth once daily 04/07/2022 Active fluticasone propionate (Flonase) 50 MCG/ACT nasal spray [place] 2 (two) sprays into each nostril as needed 04/16/2022 Active OneTouch Ultra test strip USE 1 STRIP TO CHECK GLUCOSE ONCE DAILY 01/14/2022 Active Lancets (ONETOUCH DELICA PLUS 33G EXTRA FINE LANCET) USE 1 TO CHECK GLUCOSE ONCE DAILY 01/14/2022 Active levocetirizine (Xyzal) 5 MG tablet TAKE 1 TABLET BY MOUTH NEEDED ONCE DAILY FOR ALLERGY SYMPTOMS 04/16/2022 Active fluorouracil (Efudex) 5 % creamIndication s:Actinic keratosis Apply to affected area twice daily for two weeks to the forehead, frontal scalp and temples leading up to follow up appointment. 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 Gender Identity Not on file Sexual Orientation Not on file Plan of Treatment Health Maintenance Due Date Last Done Comments COLOGUARD (AGES 45-75) - COL ON CA SCREENING 1950 COLON MONITORING 1950 COLONOSCOPY - COLON CA SCREENING 1950 CT COLONOGRAPHY - COLON CA SCREENING 1950 Colorectal Cancer Screening 1950 FIT - COLON CA SCREENING 1950 FLEX SIG - COLON CA SCREENING 1950 LIPID TESTING 1950 MEDICARE AWV 12 MONTHS 1950 HEPATITIS C SCREENING 11/14/1966 DTAP/TDAP/TD VACCINES (1 - Tdap) 11/19/1967 PNEUMOCOCCAL VACCINE 50+ (1 of 1 - PCV) 1998 ZOSTER VACCINE (1 of 2) 1998 Respiratory Syncytial Virus (RSV) Vaccine Pt: or over 60 yrs (1 - 1-dose 75+ series) 11/19/2023 COVID-19 VACCINE (1 - 2023-2 5 season) 2024 DEPRESSION SCREENING 05/04/2024 INFLUENZA VACCINE (Season Ended) 2025 HEPATITIS B VACCINE Aged Out No longe r eligible based on patient's age to complete this topic HIB VACCINE Aged Out No longer eligi ble based on patient's age to complete this topic HPV VACCINE Aged Out No longer eligi ble based on patient's age to complete this topic MENINGOCOCCAL (Group B) VACC INE SHARED DECISION-MAKING Aged Out No longer eligibl e based on patient's age to complete this topic MENINGOCOCCAL GROUPS A/C/Y/W VACCINE Aged Out No longer eligible b ased on patient's age to complete this topic Insurance MEDICARE MEDICARE Care Teams 3D Animator Relationship Specialty Start Date End Date Jomar Lance MD [address] [place] [address] PCP - General 09/29/18
--- NOTE | 2024-11-10 15:05 | ECHO_ITS ---
Patient Info Name: Parmjit Burnett Age: 73 years : 1950 Gender: Male Ht: 66 in Wt: 180 lbs BSA: 1.97 m2 HR: 68 bpm BP: 126 / 80 mmHg Technical Quality: Poor Exam Date: 11/10/2024 3:12 PM Patient Status: O Admit Date: 11/10/2024 Exam Type: CA echo dop color flow w con Complete two-dimensional, color flow and Doppler transthoracic echocardiogram is performed with contrast to opacify the left ventricle and to improve the deliniation of the left ventricle endocardial borders. Hoisting Engineer Pile Driving: Jane Hdez Attending Provider: Jomar Lance MD Contrast/Agitated Saline Contrast/Ag. Saline: Definity Amount: 2.00 ml Administered By: Jane Hdez Reason for Poor Study: poor echocardiographic windows Summary 1. Definity contrast administered improved wall motion interpretation. 2. Left ventricular chamber dimension is normal. 3. Left ventricular systolic function is normal, estimated at 60-65. 4. The left ventricular diastolic function is grade I diastolic dysfunction. 5. E/e' 5 is not elevated. 6. Left atrial chamber dimension is mildly enlarged. Left Ventricle Definity contrast administered improved wall motion interpretation. Left ventricular chamber dimension is normal. Left ventricular systolic function is normal, estimated at 60-65. The left ventricular diastolic function is grade I diastolic dysfunction. E/e' 5 is not elevated. Right Ventricle Right ventricular chamber dimension is normal. Right ventricular systolic function is normal and with normal TAPSE 2.1 cm. Left Atria Left atrial chamber dimension is mildly enlarged. Right Atria Right atrial chamber dimension is normal. Aortic Valve The aortic valve is trileaflet. There is no aortic valve stenosis. There is no aortic valve regurgitation. Pulmonic Valve There is no pulmonic regurgitation. Mitral Valve There is no mitral valve stenosis. There is no mitral valve regurgitation. Tricuspid Valve There is no tricuspid valve regurgitation. Pericardium/Pleural There is no pericardial effusion. Inferior Vena Cava Normal inferior vena cava with >50% collapse upon inspiration consistent with normal right atrial pressure, 5 mmHg. Aorta The aortic root size at the sinus of Valsalva is normal. Left Ventricular Outflow Tract Name Value Normal LVOT 2D LVOT Diameter 2.1 cm LVOT Doppler LVOT Peak Velocity 116 cm/s LVOT Peak Gradient 5 mmHg LVOT Mean Gradient 2 mmHg LVOT VTI 31 cm LVOT Stroke Volume 110 ml LVOT CO 7.0 l/min LVOT CI 3.5 l/min/m2 Pulmonic Valve Name Value Normal RVOT Doppler RVOT Peak Velocity 67 cm/s RVOT Peak Gradient 2 mmHg PV Doppler PV Peak Velocity 130 cm/s PV Peak Gradient 7 mmHg Mitral Valve Name Value Normal MV Diastolic Function MV E Peak Velocity 40 cm/s MV A Peak Velocity 91 cm/s MV E/A 0.4 MV Decel Time (PW) 380 ms MV Annular TDI MV E/e' (Septal) 6.1 MV E/e' (Lateral) 5.2 MV E/e' (Average) 5.7 Tricuspid Valve Name Value Normal Estimated PAP/RSVP RA Pressure 5 mmHg <=5 Aortic Valve Name Value Normal AV Doppler AV Peak Velocity 129 cm/s AV Peak Gradient 7 mmHg AV Area (Cont Eq Kevin) 3.2 cm2 AV DI (Kevin) 0.90 AV Regurgitation 2D LVOT Area 3.5 cm2 Ventricles Name Value Normal LV Dimensions 2D/MM IVS Diastolic Thickness (2D) 0.9 cm 0.6-1.0 LVID Diastole (2D) 4.5 cm 4.2-5.8 LVIW Diastolic Thickness (2D) 1.1 cm 0.6-1.0 LVID Systole (2D) 3.1 cm 2.5-4.0 LVOT Diameter 2.1 cm LV Mass (2D Cubed) 151.54 g 88.00-224.00 LV Mass Index (2D Cubed) 77 g/m2 49-115 Relative Wall Thickness (2D) 0.46 <=0.42 LV Fractional Shortening/Ejection Fraction 2D/MM LV Fractional Shortening (2D) 32 % 25-43 LV EF (2D Teichholz) 61 % LV Diastolic Volume (4C MOD) 67 ml LV EF (4C MOD) 58 % LV Diastolic Volume (2C MOD) 54 ml LV EF (2C MOD) 61 % LV Diastolic Volume (BP MOD) 60 ml 62-150 LV Diastolic Volume Index (BP MOD) 30 ml/m2 34-74 LV Systolic Volume (BP MOD) 24 ml 21-61 LV Systolic Volume Index (BP MOD) 12 ml/m2 11-31 LV EF (BP MOD) 59 % 52-72 LV Diastolic Length (4C) 7.0 cm LV Systolic Length (4C) 6.5 cm LV Stroke Volume (4C MOD) 39 ml Atria Name Value Normal LA Dimensions LA Volume (4C A-L) 60 ml LA Volume (BP A-L) 63 ml RA Dimensions RA Area (4C) 16.0 cm2 <=18.0 Report Signatures
[2024-11-10] MEDS: PERFLUTREN LIPID MICROSPHERES 1.5 ML VIAL DILUTED TO 10 ML TOTAL VOLUME IV PUSH (15:45)
--- NOTE | 2024-11-10 16:13 | IVDEFINITY ---
Prior to administration of IV Definity the patient was educated on the risks and benefits of the imaging enhancing agent including potential adverse side effects. The patient verbalized understanding. Allergies were verified. No exclusion criteria were identified and at least one of the following inclusion criteria were met: 1) physician request, 2) patient technically difficult to image (per the [place] Society of Echocardiography guidelines of two or more segments not discernable within the apical view), or 3) questionable left ventricular function. ?
== END 2024-11-10 14:35 | disposition home or self-care (01) ==
PROVIDERS: PCP Internal Medicine; Visit Provider Internal Medicine
DX: R94.31 Abnormal electrocardiogram [ECG] [EKG] (principal); I50.30 Unspecified diastolic (congestive) heart failure
CPT/HCPCS: C8929; Q9957

== ENCOUNTER 2025-04-24 11:57 | Outpatient (CLI) | payer MEDICARE, SELFPAY ==
--- NOTE | ~2025-04-24 | XR_ITS ---
XR chest 2V 04/24/2025 12:07 Indication: Cough Procedure: 2 view chest Comparison: Comparison to multiple prior studies sequentially, with oldest reviewed study dated 09/07/2011. Findings: Small pleural effusions. Bibasilar atelectasis. Heart size normal. Status post median sternotomy for CABG. No edema or pneumothorax. Impression: 1: Small pleural effusions with compressive atelectasis of the lung bases. Reviewed, dictated and finalized at location O. DEVELOPER Impression: 1: Small pleural effusions with compressive atelectasis of the lung bases.
--- OUTSIDE RECORDS SUMMARY | 2025-04-24 13:39 | XMS_ITS | Clinical Summary ---
Author Organization [facility] Address [address] [address] Care Team Providers Care Cashier Checker Name Role Phone Jomar Lance MD Primary [...] Comments DTAP/TDAP/TD VACCINES (1 - Tdap) 11/19/1967 PNEUMOCOCCAL VACCINE 50+ YEARS (1 of 1 - PCV) 11/18/18 99 ZOSTER VACCINE (1 of 2) 1998 RSV VACCINE (60+ or ) (1 - 1-dose 75+ series) 11/19/2023 INFLUENZA VACCINE (#1) 2024 Insurance [employer] PPO MCR Care Teams Cashier Checker Relationship Specialty Start Date End Date Jomar Lance MD [address] [place] [id number] PCP - General Internal Medicine 10/01/22
--- OUTSIDE RECORDS SUMMARY | 2025-04-24 13:39 | XMS_ITS | Clinical Summary ---
Author Organization [facility] Address [address] [place] [address] Care Team Providers Care Steel Die Printer Name Role Phone Jomar Lance MD Primary Care Provider [phone] [facility],non-owned Affiliates and Associated Physician Practices is amultiple site organization consisting of ambulatory clinics and hospital sitesin [place], [place], [place] and [place]. This disclosure is being madepursuant to the Care Everywhere program and may not contain all information available regarding this patient. 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 Gender Identity Not on file Sexual Orientation Not on file Plan of Treatment Health Maintenance Due Date Last Done Comments MEDICARE AWV 12 MONTHS 1950 HEPATITIS C SCREENING 11/14/1966 DTAP/TDAP/TD VACCINES (1 - Tdap) 11/19/1967 PNEUMOCOCCAL VACCINE 50+ (1 of 1 - PCV) 1998 ZOSTER VACCINE (1 of 2) 1998 Respiratory Syncytial Virus (RSV) Vaccine Pt: or over 60 yrs (1 - 1-dose 75+ series) 11/19/2023 DEPRESSION SCREENING 05/04/2024 COVID-19 VACCINE ( - 2024-2 6 season) 2025 INFLUENZA VACCINE (#1) 2025 HEPATITIS B VACCINE Aged Out No [...] age to complete this [place] [address] MEDICARE Care Teams Steel Die Printer Relationship Specialty Start Date End Date Jomar Lance MD [address] [place] [id number] PCP - General 09/29/18
--- OUTSIDE RECORDS SUMMARY | 2025-04-24 13:39 | XMS_ITS | Clinical Summary ---
Author Organization [facility] Address [facility] [place] [address] Care Team Providers Care Field Service Representative Name Role Phone Jomar Norris MD Primary Care Provider [phone] Encounters Date Type Department Care Team Description 03/22/2025 Telephone [facility] [address] [address] Yuridia Joyner, RN Follow Up Call (CT Heart Calcium Score) 03/09/2025 1:15 PM PSYCHIATRIC SPECIALIST - 03/09/2025 11:59 PM PSYCHIATRIC SPECIALIST Hospital Encounter [facility] [address] [facility] [address] [place], [place] [id number] Jomar Norris MD Discharge Disposition: Home or Self Care (Routine Discharge) 03/09/2025 Travel from Last 3 Months Social History Tobacco Use Types Packs/Day Years Used Date Smoking Tobacco: Never Assessed Sex and Gender Information Value Date Recorded Sex Assigned at Male 03/07/2025 1:31 PM PSYCHIATRIC SPECIALIST Legal Sex Male 1:31 PM PSYCHIATRIC SPECIALIST Gender Identity Not on file Sexual Orientation Not on file Plan of Treatment Health Maintenance Due Date Last Done Comments Kidney Health Evaluation 1948 Hemoglobin A1C 1948 Lipid Panel 1948 Diabetes: Retinopathy Eye Exam 1966 Hepatitis C 1966 DTaP, Tdap and Td Vaccines ( 1 - Tdap) 11/19/1967 Pneumococcal Vaccine: 50+ Ye ars (1 of 2 - PCV) 11/19/1967 Zoster Vaccines (1 of 2) 1998 Annual Medicare Wellness Visit 2013 RSV Immunization or 60+ Years (1 - 1-dose 75+ series) 11/19/2023 COVID-19 Vaccine (2024-2 6 season) 2025 Influenza Adult (#1) 2025 Hepatitis A Vaccines Aged Out No long er eligible based on patient's age to complete this topic Meningococcal B Vaccine Aged Out No l onger eligible based on patient's age to complete this topic Meningococcal Vaccine Aged Out No rod radha eligible based on patient's age to complete this topic RSV Immunizations Under 20 Months Aged Out No longer eligible based on patient's age to complete this topic Procedures Procedure Name Priority Date/Time Associated Diagnosis Comments CT HEART SCREEN CALCIUM SCORE PROMO Routine 03/09/2025 1:45 PM PSYCHIATRIC SPECIALIST Abnormal electrocardiogram (ECG) (EKG) Essential (primary) hypertension Type 2 diabetes mellitus without complications ([facility]/HCC [facility]/HCC) Mixed hyperlipidemia from Last 3 Months Results * CT HEART SCREEN CALCIUM SCORE PROMO (03/09/2025 1:45 PM PSYCHIATRIC SPECIALIST) Anatomical Region Laterality Modality Chest Computed Tomogra phy 03/13/2025 7:01 AM PSYCHIATRIC SPECIALIST Addenda Addendum by Heri Jeffers MD on 03/21/2025 3:10 PM PSYCHIATRIC SPECIALIST [address] [address] ADDENDUM: The report below contains several typographical errors. The corrected portion should read: Results: Left main: 0 LAD: 250 Circumflex: 0 Right coronary: 812 Total Score: 1062 =====IMPRESSION:===== Total Score: 1062 Extensive plaque, high risk, high likelihood of significant stenosis (>50%). Ordered By: JOMAR NORRIS Interpreted By: Heri Jeffers MD, 03/21/2025 3:07 PM Impressions 03/13/2025 7:02 AM PSYCHIATRIC SPECIALIST =====IMPRESSION:===== Total Score: 812 Extensive plaque, high risk, high likelihood of significant stenosis (>50%). Ordered By: JOMAR NORRIS Interpreted By: Heri Jeffers MD, 03/13/2025 7:01 AM Narrative 03/13/2025 7:02 AM PSYCHIATRIC SPECIALIST [facility] [address] [place], [place] [address] EXAMINATION: Multislice Helical CT Coronary Calcium Scoring REASON FOR EXAM: Screening for heart disease COMPARISON: None TECHNIQUE: Multislice helical CT images of the proximal coronary arteries with a computer generated calcification score. A dose lowering technique was used for this procedure, which may include, but is not limited to, dose reduction technique, automated exposure control, iterative reconstruction, ALARA (As Low As Reasonably Achievable), or Image Gently techniques. Results: Left main: 0 LAD: 250 Circumflex: 0 Right coronary: 812 Total Score: 0 Comments: There is no mediastinal adenopathy, and there are no pulmonary nodules in the visualized portions of the chest. Calcium score guidelines: Total Score* Calcium Plaque Mayo *Risk *Probability of significant CAD 0 No Plaque Very Low Very unlikely 1-10 Minimal Plaque Low Unlikely 11-100 Mild Plaque Moderate Low likelihood of significant stenosis <50% 101-400 Moderate Plaque Moderately High Moderate likelihood of significant stenosis (>50%) Over 400 Extensive Plaque High High likelihood of significant stenosis (>50%) The amount of coronary artery calcification correlates with the severity of coronary atherosclerosis and the probability of future significant event. Calcification is not site specific for stenosis and does not identify non-calcified atherosclerotic plaque, but rather indicates the extent of atherosclerosis in the coronary arteries overall. The score may be used as an indicator for risk factor modification or additional cardiac testing. Significant change in calcium score over time may be indicative of subsequent disease development or useful as a benchmark to assess preventative programs. Procedure Note Heri Jeffers MD - 03/13/2025 [facility] [address] [place], [place] [address] EXAMINATION: Multislice Helical CT Coronary Calcium Scoring REASON FOR EXAM: Screening for heart disease COMPARISON: None TECHNIQUE: Multislice helical CT images of the proximal coronary arterieswith a computer generated calcification score. A dose lowering techniquewas used for this procedure, which may include, but is not limited to,dose reduction technique, automated exposure control, iterativereconstruction, ALARA (As Low As Reasonably Achievable), or Image Gentlytechniques. Results: Left main: 0 LAD: 250 Circumflex: 0 Right coronary: 812 Total Score: 0 Comments: There is no mediastinal adenopathy, and there are no pulmonarynodules in the visualized portions of the chest. Calcium score guidelines: Total Score* Calcium Plaque Mayo *Risk *Probability ofsignificant CAD 0 No Plaque Very LowVery unlikely 1-10 Minimal Plaque LowUnlikely 11-100 Mild Plaque ModerateLow likelihood of significant stenosis <50% 101-400 Moderate Plaque Moderately HighModerate likelihood of significant stenosis (>50%) Over 400 Extensive Plaque HighHigh likelihood of significant stenosis (>50%) The amount of coronary artery calcification correlates with the severityof coronary atherosclerosis and the probability of future significantevent. Calcification is not site specific for stenosis and does notidentify non-calcified atherosclerotic plaque, but rather indicates theextent of atherosclerosis in the coronary arteries overall. The score may be used as an indicator for risk factor modification oradditional cardiac testing. Significant change in calcium score over timemay be indicative of subsequent disease development or useful as abenchmark to assess preventative programs. =====IMPRESSION:===== Total Score: 812 Extensive plaque, high risk, high likelihood ofsignificant stenosis (>50%). Ordered By: JOMAR NORRIS Interpreted By: Heri Jeffers MD, 03/13/2025 7:01 AM Jomar Norris MD CT Edited Result - Final from Last 3 Months Insurance [employer] MEDICARE Care Teams Field Service Representative Relationship Specialty Start Date End Date Jomar Norris MD [address] [place] [id number] PCP - General INTERNAL MEDICINE 03/07/25
--- OUTSIDE RECORDS SUMMARY | 2025-06-08 18:00 | XMS_ITS | Clinical Summary ---
Author Organization Unknown Care Team Providers Care Percussion Teacher Name Role Phone MYRNA MARTINEZ, RENE Unavailable Unavailable LILLY MOONEY, NINA Unavailable Unavailable ROSI LANGSTONN, ANN Unavailable Unavailable LALO MOONEY, JALEN Unavailable Unavailable Payers Payer Name Policy Type Policy Number Effective Date Expira tion Date DRAKE [id number] Problems Condition Name Condition Details Condition Category Status Onset Date Resolution Date Last Treatment Date Treating Clinician Comments ENCNTR FOR SURGICAL AFTCR FOLLOWING SURGERY ON THE CIRC SYS Active 2024-05 00:00: 00 ATHSCL HEART DISEASE OF [place] CORONARY ARTERY W/O ANG PCTRS Active 2024-05 00:00: 00 HYP HRT AND CHR KDNY DIS W HRT FAIL AND STG 1-4/UNSP CHR KDNY Active 2024-05 00:00: 00 ACUTE SYSTOLIC (CONGESTIVE) HEART FAILURE Active 2024-05 00:00: 00 TYPE 2 DIABETES MELLITUS W DIABETIC CHRONIC KIDNEY DISEASE Active 05-04 00:00: 00 CHRONIC KIDNEY DISEASE, UNSPECIFIED Active 05-04 00:00: 00 VENTRICULAR PREMATURE DEPOLARIZATI ON Active 05-04 00:00: 00 HYPERLIPIDEM IA, UNSPECIFIED Active 05-04 00:00: 00 PRESENCE OF AORTOCORONAR Y BYPASS GRAFT Active 2024-05 00:00: 00 MCC (CURRENT) USE OF OPIATE ANALGESIC Active 05-04 00:00: 00 Allergies, Adverse Reactions, Alerts Allergy Name Allergy Type Status Severity Reaction(s) Onset Date Inactive Date Treating Clinician Comments NO KNOWN ALLERGIES Propensity to adverse reactions Active 2024-05 13:26: 43 Immunizations Ordered Immunization Name Filled Immunization Name Date Status Comments Refusal Reason SINGLE DOSE REGIMEN, COVID-19 VACCINE 2024-05-11 00:00:00 Vital Signs Vital Name Observation Time Observation Value Commen ts Temperature 2025-04-17 07:13:00.000 97.8 [degF] Temperature 2025-04-13 11:05:00.000 97.8 [degF] Temperature 2025-04-12 13:23:00.000 99.1 [degF] Temperature 2025-04-12 09:50:00.000 96 [degF] Temperature 2025-04-11 13:16:00.000 97.5 [degF] BMI (%) 2025-04-11 13:16:00.000 28 kg/m2 Height 2025-04-11 13:16:00.000 66 [in_us] Pulse 2025-04-17 07:13:00.000 90 /min Pulse 2025-04-13 11:05:00.000 76 /min Pulse 2025-04-12 13:23:00.000 76 /min Pulse 2025-04-12 09:50:00.000 78 /min Pulse 2025-04-11 13:16:00.000 72 /min O2 Saturation (%) 2025-04-17 07:13:00.000 97 % O2 Saturation (%) 2025-04-13 11:05:00.000 97 % O2 Saturation (%) 2025-04-12 13:23:00.000 96 % O2 Saturation (%) 2025-04-12 09:50:00.000 95 % O2 Saturation (%) 2025-04-11 13:16:00.000 96 % Respirations 2025-04-17 07:13:00.000 18 /min Respirations 2025-04-13 11:05:00.000 18 /min Respirations 2025-04-12 13:23:00.000 18 /min Respirations 2025-04-12 09:50:00.000 18 /min Respirations 2025-04-11 13:16:00.000 17 /min Weight (lbs) 2025-04-17 07:13:00.000 167 [lb_av] Weight (lbs) 2025-04-13 11:05:00.000 170 [lb_av] Weight (lbs) 2025-04-11 13:16:00.000 178.9 [lb_av] Systolic Blood Pressure 2025-04-17 07:13:00.000 138 mm [Hg] Systolic Blood Pressure 2025-04-13 11:10:00.000 122 mm [Hg] Systolic Blood Pressure 2025-04-12 13:23:00.000 105 mm [Hg] Systolic Blood Pressure 2025-04-12 09:50:00.000 96 mm[ Hg] Systolic Blood Pressure 2025-04-11 13:16:00.000 110 mm [Hg] Diastolic Blood Pressure 2025-04-17 07:13:00.000 83 mm [Hg] Diastolic Blood Pressure 2025-04-13 11:10:00.000 80 mm [Hg] Diastolic Blood Pressure 2025-04-12 13:23:00.000 72 mm [Hg] Diastolic Blood Pressure 2025-04-12 09:50:00.000 58 mm [Hg] Diastolic Blood Pressure 2025-04-11 13:16:00.000 64 mm [Hg] Plan of Treatment Planned Activity Planned Date Details Comments Future Scheduled Test RN TO OBSE RVE, ASSESS, EVALUATE, AND DEVELOP AN INDIVIDUALIZED PLAN OF CARE. AGENCY MAY ACCEPT ORDERS FROM CONSULTING PHYSICIANS DR ANITA DANGELO TO OBSERVE AND ASSESS, DRYWALL BOARDHANGER/ENGINEERING OPERATIONS LEADER TO OBSERVE FOR RISK FOR FALLS AND INSTRUCT IN FALL PREVENTION, HOME SAFETY, MEDICATION MANAGEMENT, INFECTION PREVENTION, AND NUTRITION MANAGEMENT. RN/DRYWALL BOARDHANGER/ENGINEERING OPERATIONS LEADER NURSE MAY PERFORM O2 SATURATION LEVEL ON ADMISSION AND PRN FOR 1 FOR RN TO ASSESS/DRYWALL BOARDHANGER TO OBSERVE PATIENT, WITH NOTIFICATION TO THE PHYSICIAN IF SATURATION IS 90% IN THE ABSENCE OF MORE SPECIFIC PARAMETERS FROM THE PHYSICIAN. AGENCY MAY PERFORM A RESUMPTION OF CARE VISIT FOLLOWING ANY HOSPITAL ADMISSION. RN/DRYWALL BOARDHANGER/ENGINEERING OPERATIONS LEADER TO MONITOR CO-MORBID CONDITIONS LISTED ON THE PLAN OF CARE AND ANY NEW CONDITIONS THAT PRESENT THEMSELVES DURING THIS EPISODE TO IDENTIFY CHANGES AND INTERVENE TO MINIMIZE COMPLICATIONS. [code = RN TO OBSERVE, ASSESS, EVALUATE, AND DEVELOP AN INDIVIDUALIZED PLAN OF CARE. AGENCY MAY ACCEPT ORDERS FROM CONSULTING PHYSICIANS DR ANITA DANGELO TO OBSERVE AND ASSESS, DRYWALL BOARDHANGER/ENGINEERING OPERATIONS LEADER TO OBSERVE FOR RISK FOR FALLS AND INSTRUCT IN FALL PREVENTION, HOME SAFETY, MEDICATION MANAGEMENT, INFECTION PREVENTION, AND NUTRITION MANAGEMENT. RN/DRYWALL BOARDHANGER/ENGINEERING OPERATIONS LEADER NURSE MAY PERFORM O2 SATURATION LEVEL ON ADMISSION AND PRN FOR 1 FOR RN TO ASSESS/DRYWALL BOARDHANGER TO OBSERVE PATIENT, WITH NOTIFICATION TO THE PHYSICIAN IF SATURATION IS 90% IN THE ABSENCE OF MORE SPECIFIC PARAMETERS FROM THE PHYSICIAN. AGENCY MAY PERFORM A RESUMPTION OF CARE VISIT FOLLOWING ANY HOSPITAL ADMISSION. RN/DRYWALL BOARDHANGER/ENGINEERING OPERATIONS LEADER TO MONITOR CO-MORBID CONDITIONS LISTED ON THE PLAN OF CARE AND ANY NEW CONDITIONS THAT PRESENT THEMSELVES DURING THIS EPISODE TO IDENTIFY CHANGES AND INTERVENE TO MINIMIZE COMPLICATIONS.] Future Scheduled Test PHYSICAL T HERAPIST TO EVALUATE FOR GAIT TRAINING AND STREGTHENING [code = PHYSICAL THERAPIST TO EVALUATE FOR GAIT TRAINING AND STREGTHENING] Future Scheduled Test OCCUPATION AL THERAPIST TO EVALUATE FOR FOR ADL AND SAFETY EDUCATION [code = OCCUPATIONAL THERAPIST TO EVALUATE FOR FOR ADL AND SAFETY EDUCATION] Future Scheduled Test FALL REDUC TION MANAGEMENT; RN TO ASSESS AND OBSERVE, DRYWALL BOARDHANGER/ENGINEERING OPERATIONS LEADER TO OBSERVE FALL RISK FACTORS AND EDUCATE PATIENT/CAREGIVER ON STRATEGIES TO MINIMIZE THE RISK OF FALLING. [code = FALL REDUCTION MANAGEMENT; RN TO ASSESS AND OBSERVE, DRYWALL BOARDHANGER/ENGINEERING OPERATIONS LEADER TO OBSERVE FALL RISK FACTORS AND EDUCATE PATIENT/CAREGIVER ON STRATEGIES TO MINIMIZE THE RISK OF FALLING.] Future Scheduled Test GASTROINTE STINAL MANAGEMENT; RN TO ASSESS AND TEACH, ENGINEERING OPERATIONS LEADER/DRYWALL BOARDHANGER TO OBSERVE AND TEACH RELATED TO ALTERED GASTROINTESTINAL STATUS TO MINIMIZE COMPLICATIONS AND REDUCE HOSPITALIZATION. [code = GASTROINTESTINAL MANAGEMENT; RN TO ASSESS AND TEACH, ENGINEERING OPERATIONS LEADER/DRYWALL BOARDHANGER TO OBSERVE AND TEACH RELATED TO ALTERED GASTROINTESTINAL STATUS TO MINIMIZE COMPLICATIONS AND REDUCE HOSPITALIZATION.] Future Scheduled Test PAIN MANAG EMENT; RN TO ASSESS AND TEACH, ENGINEERING OPERATIONS LEADER/DRYWALL BOARDHANGER TO OBSERVE AND TEACH AND PROVIDE EDUCATION ON PAIN MANAGEMENT TECHNIQUES. [code = PAIN MANAGEMENT; RN TO ASSESS AND TEACH, ENGINEERING OPERATIONS LEADER/DRYWALL BOARDHANGER TO OBSERVE AND TEACH AND PROVIDE EDUCATION ON PAIN MANAGEMENT TECHNIQUES.] Future Scheduled Test RN TO ASSE SS/TEACH, DRYWALL BOARDHANGER/ENGINEERING OPERATIONS LEADER TO OBSERVE/TEACH SURGICAL AFTERCARE MANAGEMENT TO AVOID HOSPITALIZATION. [code = RN TO ASSESS/TEACH, DRYWALL BOARDHANGER/ENGINEERING OPERATIONS LEADER TO OBSERVE/TEACH SURGICAL AFTERCARE MANAGEMENT TO AVOID HOSPITALIZATION.] Future Scheduled Test CARDIOVASC ULAR SYSTEM; RN TO ASSESS/TEACH, DRYWALL BOARDHANGER/ENGINEERING OPERATIONS LEADER TO OBSERVE/TEACH RELATED TO ALTERED CARDIOVASCULAR STATUS TO MINIMIZE COMPLICATIONS AND REDUCE HOSPITALIZATION. [code = CARDIOVASCULAR SYSTEM; RN TO ASSESS/TEACH, DRYWALL BOARDHANGER/ENGINEERING OPERATIONS LEADER TO OBSERVE/TEACH RELATED TO ALTERED CARDIOVASCULAR STATUS TO MINIMIZE COMPLICATIONS AND REDUCE HOSPITALIZATION.] Future Scheduled Test CORONARY A RTERY BYPASS GRAFT (CABG); RN TO ASSESS/TEACH, DRYWALL BOARDHANGER/ENGINEERING OPERATIONS LEADER TO OBSERVE/TEACH WARNING SIGNS AND SYMPTOMS TO AVOID HOSPITALIZATION. MONITOR SURGICAL INCISION SITES FOR S/S OF INFECTION. [code = CORONARY ARTERY BYPASS GRAFT (CABG); RN TO ASSESS/TEACH, DRYWALL BOARDHANGER/ENGINEERING OPERATIONS LEADER TO OBSERVE/TEACH WARNING SIGNS AND SYMPTOMS TO AVOID HOSPITALIZATION. MONITOR SURGICAL INCISION SITES FOR S/S OF INFECTION.] Future Scheduled Test HYPERTENSI ON MANAGEMENT; RN TO ASSESS AND TEACH, DRYWALL BOARDHANGER/ENGINEERING OPERATIONS LEADER TO OBSERVE AND TEACH WARNING SIGNS AND SYMPTOMS TO AVOID HOSPITALIZATION. [code = HYPERTENSION MANAGEMENT; RN TO ASSESS AND TEACH, DRYWALL BOARDHANGER/ENGINEERING OPERATIONS LEADER TO OBSERVE AND TEACH WARNING SIGNS AND SYMPTOMS TO AVOID HOSPITALIZATION.] Future Scheduled Test ARRHYTHMIA MANAGEMENT; RN TO ASSESS AND TEACH, DRYWALL BOARDHANGER/ENGINEERING OPERATIONS LEADER TO OBSERVE AND TEACH WARNING SIGNS AND SYMPTOMS TO AVOID HOSPITALIZATION. [code = ARRHYTHMIA MANAGEMENT; RN TO ASSESS AND TEACH, DRYWALL BOARDHANGER/ENGINEERING OPERATIONS LEADER TO OBSERVE AND TEACH WARNING SIGNS AND SYMPTOMS TO AVOID HOSPITALIZATION.] Future Scheduled Test RISK FOR H OSPITALIZATION; RN TO ASSESS/TEACH, ENGINEERING OPERATIONS LEADER/DRYWALL BOARDHANGER TO OBSERVE/TEACH PATIENT/CAREGIVER ON RISK FOR HOSPITALIZATION/EMERGENCY ROOM VISITS, TEACH SIGNS AND SYMPTOMS THAT PUT PATIENT AT RISK, WHEN TO NOTIFY NURSE/PHYSICIAN OF COMPLICATIONS/DECLINE, AND WHEN TO CALL 911. [code = RISK FOR HOSPITALIZATION; RN TO ASSESS/TEACH, ENGINEERING OPERATIONS LEADER/DRYWALL BOARDHANGER TO OBSERVE/TEACH PATIENT/CAREGIVER ON RISK FOR HOSPITALIZATION/EMERGENCY ROOM VISITS, TEACH SIGNS AND SYMPTOMS THAT PUT PATIENT AT RISK, WHEN TO NOTIFY NURSE/PHYSICIAN OF COMPLICATIONS/DECLINE, AND WHEN TO CALL 911.] Future Scheduled Test MEDICATION MANAGEMENT; RN/DRYWALL BOARDHANGER/ENGINEERING OPERATIONS LEADER TO REVIEW MEDICATIONS FOR INTERACTIONS, EFFECTIVENESS OF DRUG THERAPY, AND SIGNS/SYMPTOMS OF ADVERSE REACTIONS. MAY INSTRUCT AND REINFORCE MEDICATION TEACHING RELATED TO THE USE OF MEDICATIONS, DOSAGE, FREQUENCY, PURPOSE, SIDE EFFECTS, AND TO REPORT COMPLICATIONS. [code = MEDICATION MANAGEMENT; RN/DRYWALL BOARDHANGER/ENGINEERING OPERATIONS LEADER TO REVIEW MEDICATIONS FOR INTERACTIONS, EFFECTIVENESS OF DRUG THERAPY, AND SIGNS/SYMPTOMS OF ADVERSE REACTIONS. MAY INSTRUCT AND REINFORCE MEDICATION TEACHING RELATED TO THE USE OF MEDICATIONS, DOSAGE, FREQUENCY, PURPOSE, SIDE EFFECTS, AND TO REPORT COMPLICATIONS.] Future Scheduled Test DIABETES M ONITORING RN/ENGINEERING OPERATIONS LEADER/DRYWALL BOARDHANGER TO MONITOR BLOOD SUGAR LOG FOR BLOOD SUGAR READINGS THAT ARE BEING CHECKED BY PATIENT 2 TIMES A DAY. PATIENT THERAPEUTIC BLOOD SUGAR PARAMETERS ARE 100-250 REPORT BLOOD SUGARS OUT OF RANGE TO PHYSICIAN. NURSE MAY PERFORM FINGER STICK BLOOD GLUCOSE NEEDED FOR SIGNS AND SYMPTOMS OF HYPO AND HYPERGLYCEMIA. RN/ENGINEERING OPERATIONS LEADER/DRYWALL BOARDHANGER TO MONITOR ADHERENCE OF PATIENT PERFORMING DIABETIC FOOT CARE AND MAY PERFORM DIABETIC FOOT CARE PRN. RN/ENGINEERING OPERATIONS LEADER/DRYWALL BOARDHANGER TO MONITOR FOR ADHERENCE TO DIABETIC SELF-CARE AND MANAGEMENT INCLUDING MEDICATIONS. [code = DIABETES MONITORING RN/ENGINEERING OPERATIONS LEADER/DRYWALL BOARDHANGER TO MONITOR BLOOD SUGAR LOG FOR BLOOD SUGAR READINGS THAT ARE BEING CHECKED BY PATIENT 2 TIMES A DAY. PATIENT THERAPEUTIC BLOOD SUGAR PARAMETERS ARE 100-250 REPORT BLOOD SUGARS OUT OF RANGE TO PHYSICIAN. NURSE MAY PERFORM FINGER STICK BLOOD GLUCOSE NEEDED FOR SIGNS AND SYMPTOMS OF HYPO AND HYPERGLYCEMIA. RN/ENGINEERING OPERATIONS LEADER/DRYWALL BOARDHANGER TO MONITOR ADHERENCE OF PATIENT PERFORMING DIABETIC FOOT CARE AND MAY PERFORM DIABETIC FOOT CARE PRN. RN/ENGINEERING OPERATIONS LEADER/DRYWALL BOARDHANGER TO MONITOR FOR ADHERENCE TO DIABETIC SELF-CARE AND MANAGEMENT INCLUDING MEDICATIONS.] Future Scheduled Test PRN VISITS ; NUMBER OF RN/DRYWALL BOARDHANGER/ENGINEERING OPERATIONS LEADER VISITS: 1 RN/DRYWALL BOARDHANGER/ENGINEERING OPERATIONS LEADER TO PERFORM: ASSESSMENT FOR THE FOLLOWING REASONS: SKIN INTEGRITY OF SURGICAL WOUNDS AND CARDIAC COMPLICATIONS [code = PRN VISITS; NUMBER OF RN/DRYWALL BOARDHANGER/ENGINEERING OPERATIONS LEADER VISITS: 1 RN/DRYWALL BOARDHANGER/ENGINEERING OPERATIONS LEADER TO PERFORM: ASSESSMENT FOR THE FOLLOWING REASONS: SKIN INTEGRITY OF SURGICAL WOUNDS AND CARDIAC COMPLICATIONS] Future Scheduled Test OCCUPATION AL THERAPY EVALUATION PERFORMED. NO ADDITIONAL VISITS REQUIRED. PROVIDED SKILLED INTERVENTION INCLUDING TASK/ PERFORMANCE ANALYSIS, SIMULATION, PATIENT REPORT, CLINICAL JUDGEMENT TO DETERMINE CLOF IN HOME ENVIRONMENT. [code = OCCUPATIONAL THERAPY EVALUATION PERFORMED. NO ADDITIONAL VISITS REQUIRED. PROVIDED SKILLED INTERVENTION INCLUDING TASK/ PERFORMANCE ANALYSIS, SIMULATION, PATIENT REPORT, CLINICAL JUDGEMENT TO DETERMINE CLOF IN HOME ENVIRONMENT.] Future Scheduled Test PHYSICAL T HERAPY EVALUATION PERFORMED. NO ADDITIONAL VISITS REQUIRED. PROVIDED SKILLED INTERVENTION INCLUDING ASSESSMENT AND VITAL SIGNS, STRENGTH, BALANCE, AMBULATION, AND TRANSFERS. PATIENT INSTRUCTED IN USE OF INCENTIVE SPIROMETER ... [code = PHYSICAL THERAPY EVALUATION PERFORMED. NO ADDITIONAL VISITS REQUIRED. PROVIDED SKILLED INTERVENTION INCLUDING ASSESSMENT AND VITAL SIGNS, STRENGTH, BALANCE, AMBULATION, AND TRANSFERS. PATIENT INSTRUCTED IN USE OF INCENTIVE SPIROMETER ...] Goal Patient Goal - G ET BACK TO NORMAL ACTIVITY Goal Provider Goal - A PLAN OF CARE WILL BE ESTABLISHED THAT MEETS THE PATIENT S NEEDS. PATIENT WILL DEMONSTRATE OXYGEN SATURATION WITHIN NORMAL LIMITS OR PATIENT S OPTIMAL LEVEL ESTABLISHED BY THE PHYSICIAN THROUGHOUT CARE. CHANGES TO CO-MORBID CONDITIONS AND ANY NEW CONDITIONS WILL BE IDENTIFIED AND REPORTED TO THE PHYSICIAN. Goal Provider Goal - Goal Provider Goal - Goal Provider Goal - PATIENT/CAREGIVER WILL VERBALIZE/DEMONSTRATE UNDERSTANDING OF FALL RISK FACTORS AND IMPLEMENT STRATEGIES TO MINIMIZE FALL RISK. PATIENT/CAREGIVER WILL VERBALIZE/DEMONSTRATE AN ABILITY TO ADHERE TO FALL REDUCTION SELF-MANAGEMENT AND LIFE-STYLE CHANGES BY 06/09/24 Goal Provider Goal - PATIENT / CAREGIVER WILL VERBALIZE/DEMONSTRATE UNDERSTANDING OF MEASURES TO MANAGE ALTERED GASTROINTESTINAL STATUS BY END OF EPISODE. Goal Provider Goal - PATIENT / CAREGIVER WILL VERBALIZE / DEMONSTRATE UNDERSTANDING OF PAIN CONTROL MEASURES BY 06/09/24 Goal Provider Goal - PATIENT/CAREGIVER WILL VERBALIZE/DEMONSTRATE POSTOPERATIVE CARE TO MINIMIZE COMPLICATION AND AVOID HOSPITALIZATIONS BY THE END OF THE EPISODE. Goal Provider Goal - PATIENT / CAREGIVER WILL VERBALIZE/DEMONSTRATE UNDERSTANDING OF MEASURES TO MANAGE ALTERED CARDIOVASCULAR STATUS BY 06/09/24 Goal Provider Goal - PATIENT / CAREGIVER WILL VERBALIZE/DEMONSTRATE AN ABILITY TO ADHERE TO SELF-MANAGEMENT OF CABG TO MINIMIZE COMPLICATIONS AND AVOID HOSPITALIZATION BY END OF EPISODE. Goal Provider Goal - PATIENT / CAREGIVER WILL VERBALIZE/DEMONSTRATE AN ABILITY TO ADHERE TO SELF-MANAGEMENT OF HTN TO MINIMIZE COMPLICATIONS AND AVOID HOSPITALIZATION BY END OF EPISODE. Goal Provider Goal - PATIENT / CAREGIVER WILL VERBALIZE/DEMONSTRATE AN ABILITY TO ADHERE TO SELF-MANAGEMENT OF HEART ARRHYTHMIA TO MINIMIZE COMPLICATIONS AND AVOID HOSPITALIZATION BY END OF EPISODE. Goal Provider Goal - PATIENT/CAREGIVER WILL VERBALIZE UNDERSTANDING OF SIGNS AND SYMPTOMS THAT PUT THE PATIENT AT RISK FOR HOSPITALIZATION /EMERGENCY ROOM VISITS, WHEN TO NOTIFY NURSE/PHYSICIAN OF COMPLICATIONS/DECLINE AND WHEN TO CALL 911. Goal Provider Goal - PATIENT/CAREGIVER TO VERBALIZE, AND CONSISTENTLY DEMONSTRATE EFFECTIVE, SAFE MANAGEMENT OF MEDICATION INCLUDING KNOWLEDGE OF EFFECTIVENESS, POTENTIAL SIDE EFFECTS AND DRUG REACTIONS AND WHEN TO CONTACT THE APPROPRIATE CARE PROVIDER. PATIENT/CAREGIVER WILL BE ABLE TO VERBALIZE UNDERSTANDING OF MEDICATION REGIMEN AND ACCURATELY TAKE MEDICATIONS PRESCRIBED WITHOUT ADVERSE EFFECTS BY 06/09/24 Goal Provider Goal - BLOOD SUGARS WILL REMAIN WITHIN ESTABLISHED RANGES AND DIABETES CONTROLLED THROUGHOUT EPISODE. Goal Provider Goal - Goal Provider Goal - PATIENT / CAREGIVER WITHIN 1 VISIT WILL BE ABLE TO VERBALIZE / DEMONSTRATE UNDERSTANDING OF SAFETY PRECAUTIONS Goal Provider Goal - PATIENT / CAREGIVER WITHIN 1 VISIT WILL BE ABLE TO VERBALIZE / DEMONSTRATE UNDERSTANDING OF SAFE INDEPENDENT AMBULATION IN THE HOME ... Encounters Start Date/Time End Date/Time Encounter Type Admission Type Attending [facility] Care Department Encounter ID Discharge Date Discharge Status Discharge Condition Discharge Reason Percent Goals Met 2025-04-11 00:00:00 2025-06-09 00:00:00 Outpatient NEW ADMISSION [facility] [id number] 18.75
--- OUTSIDE RECORDS SUMMARY | 2025-06-08 18:00 | XMS_ITS | Clinical Summary ---
Author Organization Unknown Care Team Providers Care Subsea Engineer Name Role Phone MYRNA MARTINEZ, RENE Unavailable Unavailable LILLY MOONEY, NINA Unavailable Unavailable ROSI LANGSTONN, ANN Unavailable Unavailable LALO MOONEY, JALEN Unavailable Unavailable Payers Payer Name Policy Type Policy Number Effective Date Expira tion Date DRAKE [id number] Problems Condition Name Condition Details Condition Category Status Onset Date Resolution Date Last Treatment Date Treating Clinician Comments ENCNTR FOR SURGICAL AFTCR FOLLOWING SURGERY ON THE CIRC SYS Active 2024-05 00:00: 00 ATHSCL HEART DISEASE OF [place] CORONARY ARTERY W/O ANG PCTRS Active 2024-05 [...] Y BYPASS GRAFT Active 2024-05 00:00: 00 LONGTERM (CURRENT) USE OF OPIATE ANALGESIC Active 05-04 [...] DR ANITA DANGELO TO OBSERVE AND ASSESS, SALES CLERK FOOD/PRODUCTION COST ESTIMATOR TO OBSERVE FOR RISK FOR FALLS AND INSTRUCT IN FALL PREVENTION, HOME SAFETY, MEDICATION MANAGEMENT, INFECTION PREVENTION, AND NUTRITION MANAGEMENT. RN/SALES CLERK FOOD/PRODUCTION COST ESTIMATOR NURSE MAY PERFORM O2 SATURATION LEVEL ON ADMISSION AND PRN FOR 1 FOR RN TO ASSESS/SALES CLERK FOOD TO OBSERVE PATIENT, WITH NOTIFICATION TO THE PHYSICIAN IF SATURATION IS 90% IN THE ABSENCE OF MORE SPECIFIC PARAMETERS FROM THE PHYSICIAN. AGENCY MAY PERFORM A RESUMPTION OF CARE VISIT FOLLOWING ANY HOSPITAL ADMISSION. RN/SALES CLERK FOOD/PRODUCTION COST ESTIMATOR TO MONITOR CO-MORBID CONDITIONS LISTED ON THE PLAN OF CARE AND ANY NEW CONDITIONS THAT PRESENT THEMSELVES DURING THIS EPISODE TO IDENTIFY CHANGES AND INTERVENE TO MINIMIZE COMPLICATIONS. [code = RN TO OBSERVE, ASSESS, EVALUATE, AND DEVELOP AN INDIVIDUALIZED PLAN OF CARE. AGENCY MAY ACCEPT ORDERS FROM CONSULTING PHYSICIANS DR ANITA DANGELO TO OBSERVE AND ASSESS, SALES CLERK FOOD/PRODUCTION COST ESTIMATOR TO OBSERVE FOR RISK FOR FALLS AND INSTRUCT IN FALL PREVENTION, HOME SAFETY, MEDICATION MANAGEMENT, INFECTION PREVENTION, AND NUTRITION MANAGEMENT. RN/SALES CLERK FOOD/PRODUCTION COST ESTIMATOR NURSE MAY PERFORM O2 SATURATION LEVEL ON ADMISSION AND PRN FOR 1 FOR RN TO ASSESS/SALES CLERK FOOD TO OBSERVE PATIENT, WITH NOTIFICATION TO THE PHYSICIAN IF SATURATION IS 90% IN THE ABSENCE OF MORE SPECIFIC PARAMETERS FROM THE PHYSICIAN. AGENCY MAY PERFORM A RESUMPTION OF CARE VISIT FOLLOWING ANY HOSPITAL ADMISSION. RN/SALES CLERK FOOD/PRODUCTION COST ESTIMATOR TO MONITOR CO-MORBID CONDITIONS LISTED ON THE [...] TION MANAGEMENT; RN TO ASSESS AND OBSERVE, SALES CLERK FOOD/PRODUCTION COST ESTIMATOR TO OBSERVE FALL RISK FACTORS AND EDUCATE PATIENT/CAREGIVER ON STRATEGIES TO MINIMIZE THE RISK OF FALLING. [code = FALL REDUCTION MANAGEMENT; RN TO ASSESS AND OBSERVE, SALES CLERK FOOD/PRODUCTION COST ESTIMATOR TO OBSERVE FALL RISK FACTORS AND EDUCATE PATIENT/CAREGIVER ON STRATEGIES TO MINIMIZE THE RISK OF FALLING.] Future Scheduled Test GASTROINTE STINAL MANAGEMENT; RN TO ASSESS AND TEACH, PRODUCTION COST ESTIMATOR/SALES CLERK FOOD TO OBSERVE AND TEACH RELATED TO ALTERED GASTROINTESTINAL STATUS TO MINIMIZE COMPLICATIONS AND REDUCE HOSPITALIZATION. [code = GASTROINTESTINAL MANAGEMENT; RN TO ASSESS AND TEACH, PRODUCTION COST ESTIMATOR/SALES CLERK FOOD TO OBSERVE AND TEACH RELATED TO ALTERED GASTROINTESTINAL STATUS TO MINIMIZE COMPLICATIONS AND REDUCE HOSPITALIZATION.] Future Scheduled Test PAIN MANAG EMENT; RN TO ASSESS AND TEACH, PRODUCTION COST ESTIMATOR/SALES CLERK FOOD TO OBSERVE AND TEACH AND PROVIDE EDUCATION ON PAIN MANAGEMENT TECHNIQUES. [code = PAIN MANAGEMENT; RN TO ASSESS AND TEACH, PRODUCTION COST ESTIMATOR/SALES CLERK FOOD TO OBSERVE AND TEACH AND PROVIDE EDUCATION ON PAIN MANAGEMENT TECHNIQUES.] Future Scheduled Test RN TO ASSE SS/TEACH, SALES CLERK FOOD/PRODUCTION COST ESTIMATOR TO OBSERVE/TEACH SURGICAL AFTERCARE MANAGEMENT TO AVOID HOSPITALIZATION. [code = RN TO ASSESS/TEACH, SALES CLERK FOOD/PRODUCTION COST ESTIMATOR TO OBSERVE/TEACH SURGICAL AFTERCARE MANAGEMENT TO AVOID HOSPITALIZATION.] Future Scheduled Test CARDIOVASC ULAR SYSTEM; RN TO ASSESS/TEACH, SALES CLERK FOOD/PRODUCTION COST ESTIMATOR TO OBSERVE/TEACH RELATED TO ALTERED CARDIOVASCULAR STATUS TO MINIMIZE COMPLICATIONS AND REDUCE HOSPITALIZATION. [code = CARDIOVASCULAR SYSTEM; RN TO ASSESS/TEACH, SALES CLERK FOOD/PRODUCTION COST ESTIMATOR TO OBSERVE/TEACH RELATED TO ALTERED CARDIOVASCULAR STATUS TO MINIMIZE COMPLICATIONS AND REDUCE HOSPITALIZATION.] Future Scheduled Test CORONARY A RTERY BYPASS GRAFT (CABG); RN TO ASSESS/TEACH, SALES CLERK FOOD/PRODUCTION COST ESTIMATOR TO OBSERVE/TEACH WARNING SIGNS AND SYMPTOMS TO AVOID HOSPITALIZATION. MONITOR SURGICAL INCISION SITES FOR S/S OF INFECTION. [code = CORONARY ARTERY BYPASS GRAFT (CABG); RN TO ASSESS/TEACH, SALES CLERK FOOD/PRODUCTION COST ESTIMATOR TO OBSERVE/TEACH WARNING SIGNS AND SYMPTOMS TO AVOID HOSPITALIZATION. MONITOR SURGICAL INCISION SITES FOR S/S OF INFECTION.] Future Scheduled Test HYPERTENSI ON MANAGEMENT; RN TO ASSESS AND TEACH, SALES CLERK FOOD/PRODUCTION COST ESTIMATOR TO OBSERVE AND TEACH WARNING SIGNS AND SYMPTOMS TO AVOID HOSPITALIZATION. [code = HYPERTENSION MANAGEMENT; RN TO ASSESS AND TEACH, SALES CLERK FOOD/PRODUCTION COST ESTIMATOR TO OBSERVE AND TEACH WARNING SIGNS AND SYMPTOMS TO AVOID HOSPITALIZATION.] Future Scheduled Test ARRHYTHMIA MANAGEMENT; RN TO ASSESS AND TEACH, SALES CLERK FOOD/PRODUCTION COST ESTIMATOR TO OBSERVE AND TEACH WARNING SIGNS AND SYMPTOMS TO AVOID HOSPITALIZATION. [code = ARRHYTHMIA MANAGEMENT; RN TO ASSESS AND TEACH, SALES CLERK FOOD/PRODUCTION COST ESTIMATOR TO OBSERVE AND TEACH WARNING SIGNS AND SYMPTOMS TO AVOID HOSPITALIZATION.] Future Scheduled Test RISK FOR H OSPITALIZATION; RN TO ASSESS/TEACH, PRODUCTION COST ESTIMATOR/SALES CLERK FOOD TO OBSERVE/TEACH PATIENT/CAREGIVER ON RISK FOR HOSPITALIZATION/EMERGENCY ROOM VISITS, TEACH SIGNS AND SYMPTOMS THAT PUT PATIENT AT RISK, WHEN TO NOTIFY NURSE/PHYSICIAN OF COMPLICATIONS/DECLINE, AND WHEN TO CALL 911. [code = RISK FOR HOSPITALIZATION; RN TO ASSESS/TEACH, PRODUCTION COST ESTIMATOR/SALES CLERK FOOD TO OBSERVE/TEACH PATIENT/CAREGIVER ON RISK FOR HOSPITALIZATION/EMERGENCY ROOM VISITS, TEACH SIGNS AND SYMPTOMS THAT PUT PATIENT AT RISK, WHEN TO NOTIFY NURSE/PHYSICIAN OF COMPLICATIONS/DECLINE, AND WHEN TO CALL 911.] Future Scheduled Test MEDICATION MANAGEMENT; RN/SALES CLERK FOOD/PRODUCTION COST ESTIMATOR TO REVIEW MEDICATIONS FOR INTERACTIONS, EFFECTIVENESS OF DRUG THERAPY, AND SIGNS/SYMPTOMS OF ADVERSE REACTIONS. MAY INSTRUCT AND REINFORCE MEDICATION TEACHING RELATED TO THE USE OF MEDICATIONS, DOSAGE, FREQUENCY, PURPOSE, SIDE EFFECTS, AND TO REPORT COMPLICATIONS. [code = MEDICATION MANAGEMENT; RN/SALES CLERK FOOD/PRODUCTION COST ESTIMATOR TO REVIEW MEDICATIONS FOR INTERACTIONS, EFFECTIVENESS OF DRUG THERAPY, AND SIGNS/SYMPTOMS OF ADVERSE REACTIONS. MAY INSTRUCT AND REINFORCE MEDICATION TEACHING RELATED TO THE USE OF MEDICATIONS, DOSAGE, FREQUENCY, PURPOSE, SIDE EFFECTS, AND TO REPORT COMPLICATIONS.] Future Scheduled Test DIABETES M ONITORING RN/PRODUCTION COST ESTIMATOR/SALES CLERK FOOD TO MONITOR BLOOD SUGAR LOG FOR BLOOD SUGAR READINGS THAT ARE BEING CHECKED BY PATIENT 2 TIMES A DAY. PATIENT THERAPEUTIC BLOOD SUGAR PARAMETERS ARE 100-250 REPORT BLOOD SUGARS OUT OF RANGE TO PHYSICIAN. NURSE MAY PERFORM FINGER STICK BLOOD GLUCOSE NEEDED FOR SIGNS AND SYMPTOMS OF HYPO AND HYPERGLYCEMIA. RN/PRODUCTION COST ESTIMATOR/SALES CLERK FOOD TO MONITOR ADHERENCE OF PATIENT PERFORMING DIABETIC FOOT CARE AND MAY PERFORM DIABETIC FOOT CARE PRN. RN/PRODUCTION COST ESTIMATOR/SALES CLERK FOOD TO MONITOR FOR ADHERENCE TO DIABETIC SELF-CARE AND MANAGEMENT INCLUDING MEDICATIONS. [code = DIABETES MONITORING RN/PRODUCTION COST ESTIMATOR/SALES CLERK FOOD TO MONITOR BLOOD SUGAR LOG FOR BLOOD SUGAR READINGS THAT ARE BEING CHECKED BY PATIENT 2 TIMES A DAY. PATIENT THERAPEUTIC BLOOD SUGAR PARAMETERS ARE 100-250 REPORT BLOOD SUGARS OUT OF RANGE TO PHYSICIAN. NURSE MAY PERFORM FINGER STICK BLOOD GLUCOSE NEEDED FOR SIGNS AND SYMPTOMS OF HYPO AND HYPERGLYCEMIA. RN/PRODUCTION COST ESTIMATOR/SALES CLERK FOOD TO MONITOR ADHERENCE OF PATIENT PERFORMING DIABETIC FOOT CARE AND MAY PERFORM DIABETIC FOOT CARE PRN. RN/PRODUCTION COST ESTIMATOR/SALES CLERK FOOD TO MONITOR FOR ADHERENCE TO DIABETIC SELF-CARE AND MANAGEMENT INCLUDING MEDICATIONS.] Future Scheduled Test PRN VISITS ; NUMBER OF RN/SALES CLERK FOOD/PRODUCTION COST ESTIMATOR VISITS: 1 RN/SALES CLERK FOOD/PRODUCTION COST ESTIMATOR TO PERFORM: ASSESSMENT FOR THE FOLLOWING REASONS: SKIN INTEGRITY OF SURGICAL WOUNDS AND CARDIAC COMPLICATIONS [code = PRN VISITS; NUMBER OF RN/SALES CLERK FOOD/PRODUCTION COST ESTIMATOR VISITS: 1 RN/SALES CLERK FOOD/PRODUCTION COST ESTIMATOR TO PERFORM: ASSESSMENT FOR THE FOLLOWING REASONS: [...] End Date/Time Encounter Type Admission Type Attending [facility] Care Department Encounter ID Discharge Date Discharge Status Discharge Condition Discharge Reason Percent Goals Met 2025-04-11 00:00:00 2025-06-09 00:00:00 Outpatient NEW ADMISSION NINA CARR [facility] [id number]
== END 2025-04-24 11:58 | disposition home or self-care (01) ==
PROVIDERS: PCP Internal Medicine; Visit Provider Internal Medicine
DX: R05.9 Cough, unspecified (principal); J90 Pleural effusion, not elsewhere classified
CPT/HCPCS: 71046